=== PATIENT | male | born 2000 | race Two or more races ===

== ENCOUNTER 2025-02-14 18:02 | Emergency (ER) | payer MEDICAID, SELFPAY ==
--- NOTE | 2025-02-14 18:13 | XR_ITS ---
Examination: Hand, right 2 views Technique: AP lateral right hand 2 views Date and time: February 14, 2025 1823 hrs. Indications: Lacerations to the hand today with pain. Findings: No fracture. No dislocation. No opaque foreign body Impression: No opaque foreign body
--- NOTE | 2025-02-14 18:14 | PD.EDADULT ---
ED General RME/HPI General Chief complaint: Hand/Wrist Problems Stated complaint: RT HAND LACERATION Time Seen by Provider: 02/14/25 18:11 Arrival date/time: 02/14/25 18:02 CC: Right hand puncture wounds HPI patient struck a mirror after becoming agitated. Patient is autistic nonverbal subject to outbursts. Comes with a care provider and EMS reports stable vital signs. Unknown tetanus status. Patient appears not in any acute distress Related Data Home Medications ?Medication ?Instructions ?Recorded ?Confirmed Alprazolam 0.5 mg PO BID ##0 01/06/16 Benztropine Mesylate * (COGENTIN *) 1 mg PO BID #0 tabs 01/06/16 Guanfacine Hcl * (INTUNIV *) 4 mg PO HS ##0 01/06/16 mirtazapine 30 mg tablet (Remeron) 30 mg PO HS #0 tabs 01/06/16 olanzapine 5 mg tablet (Zyprexa) 5 mg PO BID #0 tabs 01/06/16 Previous Rx's ?Medication ?Instructions ?Recorded acetaminophen 500 mg tablet 500 mg PO Q6HR PRN PAIN #30 tabs 01/06/16 (Tylenol Extra Strength) Allergies Allergy/AdvReac Type Severity Reaction Status Date / Time NKA* Allergy Uncoded 03/03/23 21:30 Review of Systems Review of Systems ROS Unobtainable: unobtainable due to mental status Past Medical History Past Medical History CARDIAC: Negative Congestive Heart Failure RESPIRATORY: Negative Chronic Obstructive Pulmonary Disease (COPD) GENITOURINARY: Negative Renal Disease ENDOCRINE: Negative Diabetes Mellitus Type 1 or Diabetes Mellitus Type 2 Social History SMOKING STATUS: Never smoker ED Exam Narrative Physical exam: [General: Appears not in any acute distress Head normocephalic HEENT: Within acceptable limits Neck is supple nontender Chest equal chest rise nontender to palpation Respiratory: Clear to auscultation no wheezes crackles or rubs CV: Rate rhythm is regular no murmurs rubs or clicks Abdomen is distended secondary to body habitus soft nontender no masses positive bowel sounds all 4 quadrants Back: No CVA tenderness no spinous process tenderness from cervical spine thoracic and lumbar spine Skin: Multiple small puncture wounds from which the bleeding has stopped to the dorsum of the hand cap refill the digits less than 2 seconds. Otherwise skin is intact no petechiae rash induration ulceration or crepitus Extremities: Moving all extremity against resistance cap refill less than 2 seconds neurosensory intact Neuro: Awake alert oriented x3 Glascow coma 15 no focal deficits] Course Quality Measures none Orders Category Date Time Status Miscellaneous Nursing Order NOW Care 02/14/25 19:14 Active XR hand RT 2V Stat Exams 02/14/25 18:13 Completed Vital Signs Vital signs: Vital Signs Temperature 97.9 F 02/14/25 18:25 Pulse Rate 69 02/14/25 18:25 Respiratory Rate 18 02/14/25 18:25 Blood Pressure 123/77 02/14/25 18:25 Pulse Oximetry (%) 97 02/14/25 18:25 Oxygen Delivery Method Room Air 02/14/25 18:25 Discharge Plan Plan Patient Disposition: HOME (Self Care) Patient condition on transfer: Stable Prescriptions/Referrals Prescriptions/Med Rec: No Action Alprazolam 0.5 MG TAB.RAPDIS 0.5 mg PO BID Qty: 0 olanzapine [Zyprexa] 5 MG tablet 5 mg PO BID Qty: 0 mirtazapine [Remeron] 30 MG tablet 30 mg PO HS Qty: 0 Benztropine Mesylate * (COGENTIN *) 1 MG tablet 1 mg PO BID Qty: 0 Guanfacine Hcl * (INTUNIV *) 4 MG TAB.SR.24H 4 mg PO HS Qty: 0 acetaminophen [Tylenol Extra Strength] 500 MG tablet 500 mg PO Q6HR PRN (Reason: PAIN) Qty: 30 0RF Referrals: Castillo Mendez [Primary Care Provider] - In 1 week Problem List Clinical Impression: Puncture wound of hand Patient/Caregiver Discharge Instructions Education Materials: ED Puncture Wound (General) Print Language: Ukrainian Stand Alone Forms: Mary Award Info., Patient Portal Info Letter [facility] Supervising Physician [facility] Supervising Physician: Dmitriy Franklin ENP MDM Clinical Information Provided by patient, EMS and guardian Medical Records Reviewed EMS Meds/Rx Considered, not Ordered None Labs/Rad/Tests considered, not Ordered None EKG EKG not done Lab Interpretation Labs: none Imaging Provider imaging interpretation(s): X-ray of the hand shows no foreign body. Diagnosis Differential diagnosis: Hand fracture foreign bodies hand laceration Differential dx and/or dx ruled out: Hand puncture wound Dispositon Disposition: Discharge Home
[2025-02-14 18:25] VITALS: BP 123/77; PULSE 69; RESP 18; TEMP 36.6; O2SAT 97
[2025-02-14 18:26] VITALS: PULSE 86; RESP 18; O2SAT 99
== END 2025-02-14 19:56 | disposition home or self-care (01) ==
PROVIDERS: Emergency Provider Emergency Medicine; PCP Family Medicine
DX: S61.431A Puncture wound without foreign body of right hand, initial encounter (principal); W26.8XXA Contact with other sharp object(s), not elsewhere classified, initial encounter
CPT/HCPCS: 73120; 99283